=== PATIENT | female | born 1970 | race Caucasian/White ===

== ENCOUNTER → 2017-03-19 | Outpatient (CLI) | payer MEDICARE, OTHER ==
[~2017-03-19] MED LIST: ALBU17AE; ALBU8.5H5; BEN50; BUDE6HFA; IBUP100T31; IBUP800T25; IND10; LITH300T5; LITH600C2
--- NOTE | 2017-03-19 09:33 | RADRPT ---
PROCEDURE: Ultrasound of the abdomen and retroperitoneum. CLINICAL INDICATION: Abdominal pain TECHNIQUE: Multiple real-time longitudinal and transverse images of the abdomen were acquired util izing a curved array transducer. Images were reviewed on a high-resolution PACS workstation. COMPARISON: None FINDINGS: The liver is normal in size, shape, and echogenicity. No hepatic masses are seen. There is no evide nce of intra or extrahepatic ductal dilatation. The common bile duct measures 3.1 mm in maximal dim ension. No gallstones or gallbladder wall thickening is seen. The visualized portions of the pancreas are unremarkable with obscuration of the tail of the pancrea s. No free fluid is identified. There is a 9 mm cyst in the spleen. The spleen is otherwise nilay l and measures 11.2 cm. The kidneys are without calcifications or hydronephrosis. The right kidney measures 10.0 cm, and t he left kidney measures 11.0 cm. The visualized portions of the aorta and inferior vena cava are unremarkable. IMPRESSION: 1. 9 mm splenic cyst. 2. Otherwise unremarkable ultrasound of the abdomen and retroperitoneum. RPTAT: KK .Adriel Rivera MD, MD Date Time Electronically viewed and signed by .Adriel Rivera MD, MD on 03/19/2017 09:33 .B/
--- NOTE | 2017-03-19 09:35 | RADRPT ---
PROCEDURE: Pelvic Ultrasound. CLINICAL INDICATION: Abdominal pain TECHNIQUE: Sonographic evaluation of the pelvis was performed utilizing transabdominal technique. Curved array transabdominal transducer technique was utilized. The patient declined transvaginal ultrasound. Images were reviewed on the high-resolution PACS workstation. COMPARISON: Abdominal ultrasound performed concurrently FINDINGS: The uterus is surgically absent. Study is mildly limited due to lack of transvaginal imaging The bilateral ovaries are not visualized. There are no adnexal masses. No free fluid is seen. IMPRESSION: 1. Status post hysterectomy. 2. Nonvisualization of the bilateral ovaries. 3. Otherwise unremarkable transabdominal pelvic ultrasound. RPTAT: KK .Adriel Rivera MD, MD Date Time Electronically viewed and signed by .Adriel Rivera MD, on 03/19/2017 09:34 .B/
== END | disposition home or self-care (01) ==
LOC: U/S 07:40
PROVIDERS: ATTEND Internal Medicine Gastroenterology
DX: R10.9 Unspecified abdominal pain (principal); R10.2 Pelvic and perineal pain
CPT/HCPCS: 76700; 76856